=== PATIENT | male | born 1980 | race Asian ===

== ENCOUNTER 2019-07-22 16:36 | Emergency (ER) | payer MEDICAID, MEDICARE ==
[~2019-07-22] VITALS: Ht 152.4 cm; Wt 61.2 kg
[2019-07-22 17:11] VITALS: BP 107/80
== END 2019-07-22 18:08 | disposition home or self-care (01) ==
LOC: ER 16:36
DX: B35.3 Tinea pedis (principal)

== ENCOUNTER 2020-04-20 18:19 | Emergency (ER) | payer MEDICARE, OTHER ==
[~2020-04-20] VITALS: Ht 162.6 cm; Wt 72.1 kg
[2020-04-20 21:10] VITALS: BP 105/67
== END 2020-04-20 21:12 | disposition home or self-care (01) ==
LOC: ER 18:19
DX: U07.1 COVID-19 (principal)
CPT/HCPCS: 36415; 71045; 87426

== ENCOUNTER 2021-02-16 11:24 | Emergency (ER) | payer OTHER, MEDICAID ==
[~2021-02-16] VITALS: Ht 167.6 cm; Wt 60.3 kg
[2021-02-16 12:25] LABS: Urine Bacteria NONE SEEN /hpf (None Seen); Urine Blood Negative /uL (Negative); Urine Mucus FEW (None Seen); Urine Specific Gravity 1.023 (1.001-1.035); Urine WBC 1 /hpf (0 - 3)
[2021-02-16 14:48] LABS: Basophils # (auto) 0 10 ^3/uL (0-0.2); Basophils % (auto) 0.8 % (0.0-2.0); Eosinophils # (auto) 0.2 10 ^3/uL (0-0.8); Eosinophils % (auto) 2.8 % (0.0-7.0); Hematocrit 47.9 % (41.0-53.0); Lymphocytes # (auto) 1.3 10 ^3/uL (0.4-5.4); Lymphocytes % (auto) 22.9 % (10.0-50.0); Mean Corpuscular Hemoglobin 30.6 pg (28.0-32.0); Mean Corpuscular Hgb Conc. 33.5 g/dL (32.0-36.0); Mean Corpuscular Volume 91.3 fL (80.0-100.0); Monocytes # (auto) 0.6 10 ^3/uL (0-1.3); Monocytes % (auto) 10.9 % (0.0-12.0); Neutrophils # (auto) 3.7 10 ^3/uL (1.6-8.6); Neutrophils % (auto) 62.6 % (37.0-80.0); Nucleated Red Blood Cells % 0.1 %; Red Blood Cells 5.24 10^6/uL (4.5-5.90); Red Cell Distribution Width 13.5 % (11.8-14.3); White Blood Cell 5.8 10^3/uL (4.4-10.8)
[2021-02-16 14:52] LABS: Albumin 4.3 g/dL (3.4-5.0); BUN/Creatinine Ratio 12.1; Calcium 9.4 mg/dL (8.5-10.1)
[2021-02-16 14:55] LABS: Bilirubin, Total 0.8 mg/dL (0.2-1.0); Total Protein 8.4 g/dL (6.4-8.2)
[2021-02-16] MEDS ORDERED: PERCOT PO (18:30)
[2021-02-16] MEDS ORDERED: ACYC1CAP23 PO (18:30)
[2021-02-16] MEDS ORDERED: ONDA-144 PO (18:30)
[2021-02-16 18:53] VITALS: BP 126/79
== END 2021-02-16 18:55 | disposition home or self-care (01) ==
LOC: ER 11:24
DX: B02.9 Zoster without complications (principal); R10.11 Right upper quadrant pain
CPT/HCPCS: 36415; 74176; 80053; 81001; 82150; 83690; 83735; 85025

== ENCOUNTER 2021-11-23 14:39 | Emergency (ER) | payer OTHER, MEDICAID ==
[~2021-11-23] VITALS: Ht 165.1 cm; Wt 60.0 kg
[~2021-11-23 14:39] MED LIST: ACYC1CAP23 PO; ONDA-144 PO; PERCOT PO
[2021-11-23 17:38] VITALS: BP 111/70
[2021-11-23] MEDS ORDERED: PERM1LIQ EX (17:45)
[2021-11-23] MEDS ORDERED: HYDR25CA PO (17:45)
[2021-11-23] MEDS ORDERED: PER60TP EX (17:45)
== END 2021-11-23 17:52 | disposition home or self-care (01) ==
LOC: ER 14:39
DX: B86 Scabies (principal)